=== PATIENT | male | born 1970 | race Caucasian/White ===

== ENCOUNTER 2022-12-05 16:18 | Emergency (ER) | payer OTHER ==
[~2022-12-05] VITALS: Ht 185.4 cm; Wt 104.3 kg
[~2022-12-05 16:18] MED LIST: Amoxicillin500 MG PO; PERIDEX15 ML MM
[2022-12-05] MEDS ORDERED: PAROEX473 ML MM (17:09)
== END 2022-12-05 17:14 | disposition home or self-care (01) ==
LOC: ER 16:18
DX: K13.79 Other lesions of oral mucosa (principal); Z79.899 Other long term (current) drug therapy
CPT/HCPCS: 99282